=== PATIENT | female | born 1980 | race American Indian/Alaskan Native ===

== ENCOUNTER 2020-02-29 10:03 | Emergency (ER) | payer OTHER ==
[2020-02-29 12:29] VITALS: BP 109/65
[2020-02-29] MEDS ORDERED: IBUPROFEN 800 MG TAB PO ONE (13:03)
--- NOTE | 2020-02-29 13:12 | Emergency Department Report ---
ED Extremity Problem HPI - General Chief complaint: Fever Stated complaint: FEVER/RT KNEE Time Seen by Provider: 02/29/20 13:03 Source: patient Mode of arrival: Ambulatory Limitations: No Limitations - History of Present Illness Initial comments: Patient is a 39-year-old female who is presenting with pain and swelling to the right knee. She states there is a fever in her knee. States the pain is 6 out of 10 in severity. There is increased pain when she walks. She denies any trauma or illicit drug use. Quality: aching Consistency: constant Associated Symptoms: arthralgias. denies: chest pain, shortness of breath, fever, myalgias - Related Data Previous Rx's Medication Instructions Recorded Last Taken Type Acetaminophen/Codeine 1 tab PO Q6H PRN #20 tab 06/29/14 Unknown Rx [Acetaminophen-Codeine #3 TAB] Nitrofurantoin Ceiba/M-Cryst 100 mg PO Q12HR #14 capsule 06/29/14 Unknown Rx [Macrobid] Ketorolac [Toradol] 10 mg PO Q6H PRN #12 tablet 02/29/20 Unknown Rx traMADoL [Ultram] 50 mg PO Q6HR PRN #12 tablet 02/29/20 Unknown Rx Allergies Allergy/AdvReac Type Severity Reaction Status Date / Time hydroxyzine Allergy Itching Verified 06/29/14 20:26 ED Review of Systems ROS: Stated complaint: FEVER/RT KNEE Other details as noted in HPI Comment: All other systems reviewed and negative ED Past Medical Hx - Past Medical History Previous Medical History?: No - Surgical History Past Surgical History?: No - Social History Smoking Status: Never Smoker Substance Use Type: None - Medications Home Medications: Home Medications Medication Instructions Recorded Confirmed Last Taken Type Acetaminophen/Codeine 1 tab PO Q6H PRN #20 tab 06/29/14 Unknown Rx [Acetaminophen-Codeine #3 TAB] Nitrofurantoin Ceiba/M-Cryst 100 mg PO Q12HR #14 capsule 06/29/14 Unknown Rx [Macrobid] Ketorolac [Toradol] 10 mg PO Q6H PRN #12 tablet 02/29/20 Unknown Rx traMADoL [Ultram] 50 mg PO Q6HR PRN #12 tablet 02/29/20 Unknown Rx ED Physical Exam - General Limitations: No Limitations General appearance: alert, in no apparent distress - Head Head exam: Present: atraumatic, normocephalic - Eye Eye exam: Present: normal appearance, PERRL, EOMI - ENT ENT exam: Present: mucous membranes moist - Neck Neck exam: Present: normal inspection - Respiratory Respiratory exam: Absent: respiratory distress - Extremities Exam Extremities exam: Present: normal inspection - Expanded Lower Extremity Exam Right Knee exam: Present: full ROM, tenderness, swelling (moderater effusion), effusion. Absent: abrasion, laceration, ecchymosis, deformity, erythema - Back Exam Back exam: Present: normal inspection - Neurological Exam Neurological exam: Present: alert, oriented X3 - Psychiatric Psychiatric exam: Present: normal affect, normal mood - Skin Skin exam: Present: warm, dry, intact, normal color. Absent: rash ED Course Vital Signs 02/29/20 10:21 Temperature 97.5 F L Pulse Rate 73 Respiratory 18 Rate Blood Pressure 109/65 O2 Sat by Pulse 97 Oximetry ED Medical Decision Making - Medical Decision Making Patient appears to have effusion to her right knee. Has been no trauma. Patient will have Dillon wrap and given rice therapy instructions. Patient will have orthopedic follow-up Critical care attestation.: If time is entered above; I have spent that time in minutes in the direct care of this critically ill patient, excluding procedure time. ED Disposition Clinical Impression: Knee effusion, right Disposition: DC-01 TO HOME OR SELFCARE Is pt being admited?: No Does the pt Need Aspirin: No Condition: Stable Instructions: Knee Effusion (ED), RICE Therapy (ED) Referrals: MAGDA BAKER MD [Staff Physician] - 3-5 Days Time of Disposition: 13:11
== END 2020-02-29 13:26 | disposition home or self-care (01) ==
LOC: ED 10:03
DX: M25.461 Effusion, right knee (principal); Z79.899 Other long term (current) drug therapy; Z88.8 Allergy status to other drugs, medicaments and biological substances